=== PATIENT | male | born 2000 | race Caucasian/White ===

== ENCOUNTER 2019-09-13 09:13 | Emergency (ER) | payer OTHER ==
[~2019-09-13] VITALS: Ht 167.6 cm; Wt 118.4 kg
[2019-09-13 09:25] VITALS: BP 122/71; Ht 167.6 cm; Wt 118.4 kg
== END 2019-09-13 10:02 | disposition home or self-care (01) ==
LOC: ED 09:13
DX: J40 Bronchitis, not specified as acute or chronic (principal); J02.9 Acute pharyngitis, unspecified